=== PATIENT | female | born 1950 | race Hispanic/Latino ===

== ENCOUNTER 2016-08-20 10:56 | Emergency (ER) | payer MEDICARE ==
[~2016-08-20] VITALS: Ht 162.6 cm; Wt 55.5 kg
[~2016-08-20 10:56] MED LIST: ASCO500C6 PO; CHOL400T PO; CLOP75TA28 PO; FERR-83 PO; FLUO20CA25 PO; PANT40TA3 PO; SIMV40TA5 PO
[2016-08-20 11:01] VITALS: BP 147/65; PULSE 53; RESP 14; O2SAT 96
--- NOTE | 2016-08-20 11:24 | ED.REPORT ---
HPI-Abd Pain F 40 and Over Date of Service Aug 20, 2016 ED Provider: Agustín Valdivia MD The patient is a 66 year old female with history of bleeding ulcer, anemia, breast cancer s/p mastectomy, hypertension, asthma, and CVA, who presents to the emergency department from [facility] by EMS. The patient noticed blood on the toilet paper last night with "clots." She noticed the blood again this morning after wiping. She is unsure if the blood is vaginal or urethral. She has not noticed blood when she is not going to restroom. There is no blood when she has a bowel movement. She denies pain, dysuria, nausea, vomiting, diarrhea, rash, fever or chills. She has not had similar symptoms in the past. Her LNMP was many years ago. She is not sexually active. Nursing Notes Stated Complaint: HEMATURIA Chief Complaint: Female Abdominal Pain Nursing Notes Reviewed: Yes Allergies: Coded Allergies: No Known Allergies (Unverified , 02/27/16) Scheduled Ascorbic Acid (Vitamin C) 500 Mg Capsule.er 500 MG PO HS Cholecalciferol (Vitamin D3) (Vitamin D3) 400 Unit Tablet 400 UNIT PO DAILY Clopidogrel (Clopidogrel) 75 Mg Tablet 75 MG PO DAILY Ferrous Sulfate (Ferrous Sulfate) 325 Mg Tablet 1 TAB PO BID Fluoxetine (Fluoxetine) 20 Mg Capsule 20 MG PO HS Pantoprazole DR (Pantoprazole DR) 40 Mg Tablet.dr 40 MG PO DAILY Simvastatin (Simvastatin) 40 Mg Tablet 40 MG PO HS General Time Seen by MD: 11:20 Chief Complaint Other (hematuria) Hx Obtained From: Patient, EMS Arrived By: Ambulance Sudden in Onset?: Yes Onset Occurred: Yesterday Symptom Duration: Intermittent Progression since Onset: Intermittent Severity: Current: No pain currently Severity: Maximum: No pain Pertinent Negative: Pt denies other symptoms Recent Healthcare: No recent doctor visit, No recent hospitalization Similar Sx Previous: No Past Medical History Past Medical History H/o Bleeding gastric ulcer by history 10 years in past - reportedly required transfusion, but negative upper endoscopy 10/2015 Reports anemia and negative colonoscopy at an outside hospital in April 2015 h/o breast cancer (remote) Reports: Asthma, Hypertension, Stroke Past Surgical History s/p partial mastectomy EGD 10/2015 Negative Reports: Appendectomy Family History Noncontributory Smoking History Never Smoker Social History Lives at [facility] on the independent living side Alcohol Use: Denies alcohol use Drug Use: Denies drug use Other Social History: Local resident Ambulatory Status Independent Review of Systems Constitutional: Denies: Chills, Fever GI: Denies: Abdominal pain, Bloody/tarry stool, Constipation, Diarrhea, Hematemesis, Hematochezia, Melena, Nausea Female: Reports: Hematuria (unsure if it is hematuria or vaginal bleeding), Vaginal bleeding - abnl (unsure if it is hematuria or vaginal bleeding), Denies: Dysuria, Flank pain Musculoskeletal: Denies: Back pain Complete sys rev & neg: except as marked. Skin: Denies Rash Physical Exam Vital Signs Vital Signs (First) Date Time Temp Pulse Resp B/P Pulse Ox O2 Delivery O2 Flow Rate FiO2 08/20/16 11:01 37.3 53 14 147/65 96 Room Air Initial VS: Reviewed Head / Eyes: Atraumatic, Normocephalic, PERRL ENT: Mucous membranes moist, Conjunctiva normal, No scleral icterus Neck: Supple, Non-tender, Full range of motion Lymphatic: No lymphadenopathy Extremities: Vascular intact, Neuro intact, No swelling, No tenderness Skin: Warm, Dry, No cyanosis Neurologic: Alert, Oriented, Nonfocal Psychiatric: Mood/affect normal, Behavior normal, Normal thought content General/Constitutional: Awake, Alert, Cooperative Respiratory / Chest: Atraumatic, Breath sounds NL, Breath sounds = bilat, No respiratory distress, No rales, No rhonchi, No wheezing, No stridor Cardiovascular: Heart rate NL, Regular rhythm, Heart sounds NL, No murmurs, No rubs, Peripheral circulation NL Abdomen: Atraumatic, Soft, Non-tender, McBurney's non-tender, No guarding, No rebound, BS normoactive, No distention, No hernia, No palpable mass, No pulsatile mass Back: Atraumatic, Inspection NL, No midline vertebral tend, No paraspinal tenderness, No CVA tenderness Female Genitourinary: Exam deferred Interpretation & Diagnostics Lab Results Interpretation Result Diagram: 08/20/16 1250 08/20/16 1250 Test 08/20/16 12:50 08/20/16 13:23 White Blood Count 6.8th/mm3 (3.8-10.1) Red Blood Count 3.61mil/mm3 (3.90-5.20) Hemoglobin 9.8g/dL (12.0-15.6) Hematocrit 29.3% (35.0-46.0) Mean Corpuscular Volume 81.2fL (81-100) Mean Corpuscular Hemoglobin 27.1pg (27.0-35.0) Mean Corpuscular Hemoglobin Concent 33.4% (32.0-37.0) Red Cell Distribution Width 15.1% (12.3-15.4) Platelet Count 360bil/L (150-400) Neutrophils (%) (Auto) 50.3% (40-74) Lymphocytes (%) (Auto) 33.3% (14-46) Monocytes (%) (Auto) 11.4% (4-12) Eosinophils (%) (Auto) 4.3% (0-5) Basophils (%) (Auto) 0.6% (0-3) Prothrombin Time 10.6sec (8.1-12.5) Prothromb Time International Ratio 0.99ratio Sodium Level 138mEq/L (134-144) Potassium Level 4.3mEq/L (3.5-5.2) Chloride Level 101mEq/L (97-108) Carbon Dioxide Level 23mmol/L (18-29) Blood Urea Nitrogen 16mg/dL (8-27) Creatinine 1.12mg/dL (0.57-1.00) Estimat Glomerular Filtration Rate 70mL/min (>59) Glucose Level 126mg/dL (60-99) Calcium Level 9.5mg/dL (8.5-10.1) Total Bilirubin 0.4mg/dL (0.0-1.2) Aspartate Amino Transf (AST/SGOT) 18U/L (0-50) Alanine Aminotransferase (ALT/SGPT) 10U/L (0-32) Alkaline Phosphatase 87U/L (25-165) Total Protein 7.5g/dL (6.4-8.4) Albumin 4.4g/dL (3.4-5.0) Urine Color Dark yellow (YELLOW) Urine Appearance Hazy (CLEAR,HAZY) Urine pH 5.5 (5.0-8.0) Urine Specific [place] 1.025 (1.003-1.035) Urine Protein 100mg/dL (NEG,TRACE) Urine Glucose (UA) Negativemg/dL (NEGATIVE) Urine Ketones Negativemg/dL (NEGATIVE) Urine Occult Blood Large (NEGATIVE) Urine Nitrite Negative (NEGATIVE) Urine Bilirubin Negative (NEGATIVE) Urine Urobilinogen Normalmg/dL (NORMAL) Urine Leukocyte Esterase Negative (NEGATIVE) Urine RBC >50/hpf (0-2) Urine WBC 0-5/hpf (0-5) Urine Epithelial Cells Few/hpf (NONE-MOD) Urine Crystals None seen (NONE SEEN) Urine Bacteria Few/hpf (NONE-FEW) Urine Hyaline Casts None/lpf (NONE) Urine Granular Casts None seen (NONE SEEN) Urine Waxy Casts None seen (NONE SEEN) Urine Red Blood Cell Casts None seen (NONE SEEN) Urine White Blood Cell Casts None seen (NONE SEEN) Urine Mucus None seen (None Seen) Urine Trichomonas None seen (NONE SEEN) Urine Yeast None (NONE SEEN) Urinalysis Comment Amorphous sediment Urine Culture Reflexed Not indicated Re-Eval/Medical Decision Med Decision/Clinical Course 66-year-old female with hematuria times one day. No abdominal pain or back pain. No fevers. No nausea vomiting. No other symptoms. Denies vaginal bleeding. Denies blood in stools. Urine positive blood. There is no evidence of infection. Soft nontender. Patient with asymptomatic hematuria. No history of kidney stones and given no pain do not think imaging is necessary at this time. Recommend follow-up with primary doctor in 1-2 days for reeval possible urology referral. Source of Hx: Old records, EMS Re-Evaluation/Progress : Time of Eval: 13:40 Re-Evaluation/Progress Note: Rechecked the patient. She believes the blood is in her urine and not from her vagina. She denies abdominal pain. She would not like to have a pelvic scan. Discussed plan for discharge when labs are resulted. Counseled Regarding: Diagnosis, Lab results, Need for follow-up, When/why to return to ED Discharge & Departure Primary Impression: Hematuria Disposition: Home Discharge Condition All VS Reviewed: Yes Condition: Stable Additional Instructions: Thank you for entrusting us with your care today. There is no evidence of an infection at this time. You should followup with your primary doctor in the next day or two. Please return to the emergency department if you develop increased bleeding, abdominal pain, vomiting, fever, or any other new or concerning symptoms. Referrals: SUAD RICHARDS DO (PCP) Scribconstant[place] Attestation Portions of this note were transcribed by Shanna Leach. I, Dr. Valdivia personally performed the history, physical exam and medical decision-making; I reviewed and confirmed the accuracy of the information in the transcribed note. Signed by: Virginie Hogan, 08/20/2016 at 1420. copies to: SUAD RICHARDS Ben M MD Aug 20, 2016 11:24 Shanna Leach Aug 20, 2016 11:55
[2016-08-20 13:14] LABS: BASOPHILS % (AUTO) 0.6 % (0-3); EOSINOPHILS % (AUTO) 4.3 % (0-5); MONOCYTES % (AUTO) 11.4 % (4-12); Mean Corpuscular Hemoglobin 27.1 pg (27.0-35.0); Mean Corpuscular Volume 81.2 fL (81-100); NEUTROPHILS % (AUTO) 50.3 % (40-74); Platelet Count 360 bil/L (150-400)
[2016-08-20 13:31] LABS: INR 0.99 ratio
[2016-08-20 13:32] LABS: APPEARANCE,URINE HAZY (CLEAR,HAZY); COLOR,URINE DARK YELLOW (YELLOW); OCCULT BLOOD,URINE LARGE (NEGATIVE); PH,URINE 5.5 (5.0-8.0); UROBILINOGEN,URINE NORMAL (NORMAL)
[2016-08-20 14:35] VITALS: BP 125/61; PULSE 58; RESP 15; O2SAT 98
[2016-08-20 14:42] VITALS: BP 125/61; PULSE 58; RESP 15; O2SAT 98
[2016-10-18] MEDS ORDERED: ALBU8.5H2 INHALATION (15:21)
== END 2016-08-20 14:43 | disposition home or self-care (01) ==
LOC: EDBD 10:56 → SED 10:56
DX: R31.9 Hematuria, unspecified (principal); I10 Essential (primary) hypertension; J45.909 Unspecified asthma, uncomplicated; Z86.73 Personal history of transient ischemic attack (TIA), and cerebral infarction without residual deficits; D64.9 Anemia, unspecified; Z87.19 Personal history of other diseases of the digestive system

== ENCOUNTER 2016-10-23 09:50 | Day surgery (SDC) | payer MEDICARE ==
[~2016-10-23] VITALS: Ht 165.1 cm; Wt 66.8 kg
[2016-10-23] VITALS (10 sets, daily range): BP systolic 112–148; BP diastolic 60–74; PULSE 63–96; RESP 11–18; O2SAT 92–100
--- NOTE | 2016-10-23 07:59 | PCM.HPANE ---
Patient Data Surgeon Admitting Provider: Attending Provider:Lily Flores MD Primary Care Physician:Luis Castillo DO Other Provider:Lopez Richardson Anesthesia Reason for Visit Bladder Tumor Ht/WT & BMI Height (Feet): 5 Height (Inches): 5 Weight (Kilograms): 66.77 Body Mass Index 24.00 Allergies Coded Allergies: No Known Allergies (Unverified , 10/18/16) Past Anesthesia History Anesthesia History: Denies:: Abnormal Airway, Anesthesia Reactions, Difficult Intubation, Fam Anesthesia Reaction, Fam Malignant Hypertherm, Malignant Hyperthermia Diabetes History Hx Diabetes?: No MRSA MRSA: No Medications Blood Thinner: Plavix Hypertension Medication: No Home Meds Incl Beta Romulo: No Reported Medications Albuterol HFA (Proair HFA)8.5 Gm Hfa.aer.ad2 Puffs INHALATION Q4H PRN PRN #1 INHALER 10/18/[address] 40 Mg Tablet.dr40 Mg PO DAILY #90 11/10/15 Ferrous Sulfate 325 Mg Tablet1 Tab PO BID #60 11/10/15 Fluoxetine 20 Mg Omrrwhg70 Mg PO HS Ref 0 11/09/15 Simvastatin 40 Mg Mecrgp52 Mg PO HS 30 Days Ref 0 11/09/15 Ascorbic Acid (Vitamin C)500 Mg Capsule.er500 Mg PO HS 11/09/15 Cholecalciferol (Vitamin D3) (Vitamin D3)400 Unit [id number] Unit PO DAILY 11/09/15 Clopidogrel 75 Mg Cvfuzn76 Mg PO DAILY Ref 0 11/09/15 History History of ENT Problems?: Yes HEENT History: Denies:: Abnormal Airway Cataracts Difficult Intubation Dysphagia Hearing Problem Sinus Problem Denture Type: Full- Upper Full- Lower Teeth Condition: No Teeth Hx of Heart Problems?: Yes Cardiovascular History: Positive for:: Edema (Rt ankle swelling due to fracture) Hypertension (hyperlipidemia) Denies:: AICD Atrial Fibrillation Cardiac Surgery Chest Pain Congestive Heart Failure Heart Murmur Irregular Heartbeat (HX SYNCOPE) Pacemaker Thrombophlebitis Valvular Heart Disease Other Cardiac History: hx iron deficiency anemia Hx of Respiratory Problem?: Yes Respiratory History: Positive for:: Asthma (CHRONIC) Pneumonia (HX OF) Use of Inhalers / NEBS Denies:: COPD Chest Surgery Dyspnea Emphysema Hemoptysis Tuberculosis Use of C-PAP Machine (SNORES) Hx Neurologic Problems?: Yes Neurological History: Positive for:: CVA (IN 2015 & ONE EARLIER (PT DOES NOT RECALL DATE)) Dizziness Denies:: Alzheimer's Disease Dementia Headaches Parkinson's Disease Seizures Hx of GI Problems?: Yes Hx of Problems?: Yes Genitourinary History: Denies:: HX of Hemodialysis Kidney Stones Urinary Tract Infection HX of Peritoneal Dialysis: No Other Pertinent History: HX KIDNEY INJURY BLADDER TUMOR=CURRENT PROBLEM Female Hx: Positive for:: Problems with Breasts? (S/P RT BREAST BX,PARTIAL MASTECTOMY FOR CA) Denies:: Currently Endometriosis Pelvic Inflammatory Skin History: Denies:: History Skin Disorders? Pressure Ulcers Hx Musculoskeletal Problems?: Yes Musculoskeletal History: Positive for:: Musculoskeletal Trauma (Fall W/ INJURY (HX FX ANKLE)) Osteoarthritis Denies:: Back Injury Joint Replacement Hx of Psycho/Social Problems?: No Psycho Social History: Denies:: Anxiety Bipolar Disorder Hx Depression Suicide Attempt Hx Surgeries?: Yes (RT BREAST BX,PARTIAL MASTECTOMY,APPY) Hx Any Other Health Problems?: Yes Other History: Positive for:: Cancer (RT BREAST) Hospitalization Denies:: Endocrine Disease Thyroid Disease History Blood Transfusions: Positive for:: Blood Transfusions Denies:: Blood Transfuse Reaction Hx Diabetes: No Hx Alcohol Use: NoHx Substance Use: No Smoking Status: Never Smoker Have You Smoked inLast 12 mo: NoApprox How Many Cigarettes/day: 1 PPD X 30YRS Stop/Bang S-Snoring: Do You Snore Loudly: Yes T-Tired: feel tired, fatigued: Yes O-Obsered: Observed not breath: No P-Blood Pressure: treated: Yes B- Body Mass Index > 35 kg/m2: No A- Age over 50: Yes N- Neck Large Circumference: No G- Gender Male: No JUAN CARLOS Total Score: 4 JUAN CARLOS Risk Assessment: High Risk, =/>3 Yes Risk Assessment Category Category 1A: Patient has history of documented sleep apnea, and HAS NOT received any narcotic, sedative or anesthesia administration during this stay. Category 1B: Patient has history of documented sleep apnea, and HAS received any narcotic , sedative or anesthesia administration during this stay Category 2: Patient has SUSPECTED Obstructive Sleep Apnea, and HAS received any narcotic , sedative or anesthesia administration during this stay. Category 3: Patient has SUSPECTED Obstructive Sleep Apnea and HAS NOT received narcotic, sedative or anesthesia administration during this stay. Category 4: Outpatient in Procedural Areas with known sleep apnea or who screen positive for High Risk via the STOP/BANG questionnaire. Exam Exam General Appearance: Alert, Oriented X3, Cooperative, No Acute Distress HEENT/AIRWAY: MP 2 Lungs: Normal Air Movement Heart: Exam Unremarkable Plan Impression Patient chart reviewed, patient interviewed and anesthestic plan with risks, benefits, and alternatives discussed, and informed consent obtained. ASA Physical Status: ASA3 Severe Disease (h/o CVA) Anesthetic Plan: GA Bene/Risks/Altern/Consents: Yes HP Complete Prior to Induction: Yes Jona Ramos MD October 23, 2016 07:59
[~2016-10-23 09:50] MED LIST changes: +ALBU8.5H2 INHALATION; +CeFAZolin Inj 2 GM in IV Premix 1 EACH IV SCH; +Lactated Ringer's 1,000 ML IV SCH
[2016-10-23] MEDS ORDERED: Propofol 10,000 mCg/mL 20 mL Inj ONE (09:51)
[2016-10-23] MEDS ORDERED: fentaNYL-PF 50 mCg/mL 2 mL Inj ONE (09:51)
[2016-10-23] MEDS ORDERED: Ondansetron 2 mg/mL 2 mL Inj ONE (09:51)
[2016-10-23] MEDS ORDERED: Dexamethasone 4 mg/mL Inj ONE (09:51)
[2016-10-23] MEDS ORDERED: Glycopyrrolate 0.2 MG/ML 1mL Inj ONE (09:51)
[2016-10-23] MEDS ORDERED: Lactated Ringer's 1,000 ML IV ONE (10:44)
[2016-10-23] MEDS ORDERED: Lactated Ringer's 1,000 ML IV SCH (11:19)
[2016-10-23] MEDS ORDERED: Lactated Ringer's 500 ML IV PRN (11:19)
[2016-10-23] MEDS ORDERED: Phenylephrine 10,000 mCg/mL Inj IVPUSH PRN (11:20)
[2016-10-23] MEDS ORDERED: fentaNYL-PF 50 mCg/mL 2 mL Inj IVPUSH PRN (11:20)
[2016-10-23] MEDS ORDERED: HYDROmorphone 1 mg/mL Inj IVPUSH PRN (11:20)
[2016-10-23] MEDS ORDERED: Ondansetron 2 mg/mL 2 mL Inj IVPUSH PRN (11:20)
[2016-10-23] MEDS ORDERED: Dexamethasone 4 mg/mL Inj IVPUSH PRN (11:20)
[2016-10-23] MEDS ORDERED: MetoCLOpramide 5 mg/mL 2 mL Inj IVPUSH PRN (11:20)
[2016-10-23] MEDS ORDERED: Albuterol-Ipratropium 3 mL Inhalation Solution NEB PRN (11:20)
[2016-10-23] MEDS ORDERED: EPHEDrine Sulfate 50 mg/mL Inj IVPUSH PRN (11:20)
[2016-10-23] MEDS ORDERED: Ondansetron 8 mg ODT Tablet PO PRN (11:50)
[2016-10-23] MEDS ORDERED: HYDROcodone-APAP 5-325 mg Tablet PO PRN (11:50)
[2016-10-23] MEDS ORDERED: Phenazopyridine 97.5 mg Tablet PO PRN (11:50)
--- NOTE | 2016-10-23 11:52 | PCM.ANEP1 ---
Post Anesthesia Phase 1 PACU Phase 1 Assessment Vital Signs see anesthesia record Vital Signs Date Time Temp Pulse Resp B/P Pulse Ox O2 Delivery O2 Flow Rate FiO2 10/23/16 10:45 36.1 63 17 113/74 96 Room Air Anesthetic Administered: GA Level of Alertness: Awake, talking KIM's with Equal Strength: Yes Pain: No Nausea or Vomiting: No Cardiovascular Function and Hy: Yes Oxygen Delivery: Room Air Lungs: Normal Air Movement Dermatome Level: Full Sensation Complications: No Follow up Care: No Jona Ramos MD October 23, 2016 11:52
--- NOTE | 2016-10-24 09:19 | OP ---
[address] [address] OPERATIVE REPORT PATIENT: BRITT DAN : 1950 MR#: [id number] ADMIT: 10/23/2016 JOB ID: [id number] DATE OF SURGERY: 10/23/2016 PROCEDURE: Cystoscopy with transurethral resection of bladder tumor, 3-5 cm in size affected area. SURGEON: Lily Flores M.D. ANESTHESIA: General. PREOPERATIVE DIAGNOSIS(ES): Papillary bladder tumor. POSTOPERATIVE DIAGNOSIS(ES): Papillary bladder tumor. INDICATIONS: The patient is a 66-year-old woman with history of gross hematuria. On workup she was found to have a papillary tumor mass approximately 3-4 cm in size with very little surrounding tissue involvement or erythema and set up for transurethral biopsy fulguration. PROCEDURE IN DETAIL: After appropriate informed consent was obtained, the patient was brought to the operating room. She received IV antibiotics prior to onset of the procedure. SCDs were placed. Adequate general anesthesia induced. She was carefully placed into a dorsal lithotomy position. All pressure points carefully padded. Cleaned, prepped, and draped in the usual sterile fashion. Rigid scope was introduced into the patient's bladder. Proceeded systematically with the 30 and a 70-degree lenses. There were no other areas of concern found beyond this left-sided somewhat cephalad to the ureteral orifice and somewhat lateral to this location. We used both the cold cup biopsy forceps to remove portions of the tumor and down into the muscle as well as the resectoscope to completely remove all of the papillary area that was affected. The specimens were handed off for permanent pathology. The cold cup biopsies were set separate from the electrocautery resected specimens. At the termination of the procedure, hemostasis was excellent. All of the area that appeared to be involved was treated. Urine was clear. Bladder was drained. The scope removed. The patient was awakened and taken in stable condition to the postanesthesia care unit.
--- NOTE | 2016-10-24 15:29 | PATH ---
SURGICAL PATHOLOGY Attending Physician:Lily Flores MD CASE STATUS: Signed Out PATIENT NAME: BRITT DAN PID: [id number] : 1950 DATE COLLECTED:10/23/2016 20:27 SPECIMEN: 1: Bladder, Biopsy 2: Bladder, Biopsy CLINICAL HISTORY: 2-3 CM PAPILLARY BLADDER TUMOR COMPLEX 1). PAPILLARY BLADDER TUMOR 2). RESECTED BLADDER TUMOR FINAL DIAGNOSIS: 1.PAPILLARY BLADDER TUMOR: PAPILLARY TRANSITIONAL CELL CARCINOMA, LOW-GRADE. TUMOR DOES NOT INVADE THE LAMINA PROPRIA. 2.RESECTED BLADDER TUMOR: PAPILLARY TRANSITIONAL CELL CARCINOMA, LOW-GRADE. TUMOR DOES NOT INVADE THE LAMINA PROPRIA OR MUSCULARIS PROPRIA. ICD10 CODEC67.9 GROSS DESCRIPTION: The specimen is received in two formalin filled containers labeled with the patient's name. 1). The specimen is sublabeled "papillary bladder tumor" and consists of are 3 light hollins-motta friable portions of tissue which aggregate to 1.3 x 1.0 x 0.4 CM. The specimen is entirely submitted in cassette 1A. 2). The specimen is sublabeled "resected with electrocautery bladder" and consists of multiple portions of tissue which aggregate to 1.0 x 0.7 0.6 CM. The specimen is entirely submitted in cassette 2A. 10/23/2016 [facility] MICRO DESCRIPTION: See diagnosis. ICD-9 CODES: CPT CODES: 1: 83864 2: 15503 Electronically Signed Out Brandon Rodney MD [facility] Pathology [facility] [address], [place] [address] Technical component performed at [facility], [facility] [address], [place], [address]
== END 2016-10-23 23:59 | disposition home or self-care (01) ==
LOC: SAS 09:50
PROVIDERS: ATTEND Urology
DX: C67.9 Malignant neoplasm of bladder, unspecified (principal); R31.0 Gross hematuria; D50.0 Iron deficiency anemia secondary to blood loss (chronic); E78.5 Hyperlipidemia, unspecified; Z86.73 Personal history of transient ischemic attack (TIA), and cerebral infarction without residual deficits; Z87.891 Personal history of nicotine dependence; Z85.3 Personal history of malignant neoplasm of breast; Z90.11 Acquired absence of right breast and nipple; Z79.02 Long term (current) use of antithrombotics/antiplatelets
CPT/HCPCS: 52235; 88305; J0690; J1100; J2405; J3010; J7120